=== PATIENT | female | born 1945 | race Two or more races ===

== ENCOUNTER 2025-04-28 11:51 | Inpatient (IN) | payer OTHER ==
[~2025-04-28] VITALS: Ht 154.9 cm; Wt 45.4 kg
[2025-04-28] MEDS ORDERED: INTESTINEX680 M1 PO (12:35)
[2025-04-28] MEDS ORDERED: PEPCID AC20 MG PO (12:35)
[2025-04-28] MEDS ORDERED: DULOXETINE HCL40 MG PO (12:36)
--- NOTE | 2025-04-28 12:36 | NUR ---
PACIENTE ACOMPANADA POR LA HIJA, PACIENTE REFIERE VOMITOS, DIARREAS Y DOLOR DE PATRICIA, SE LE KRISTAL LOS S/V Y SE LE UBICA PARA SER EVALUADA.
[2025-04-28] MEDS ORDERED: ONDANSETRON HCL 2 MG/ML VIAL IV STA (12:52)
[2025-04-28] MEDS ORDERED: 0.9 % SODIUM CHLORIDE 1,000 ML IV STA ×2 (12:52→18:54)
[2025-04-28] MEDS ORDERED: FAMOTIDINE/PF 20 MG/2 ML VIAL IV STA ×2 (12:52→18:53)
[2025-04-28 15:11] LABS: BASO % 0.3 % (0.1-1.2); EOS # 0.00 (0.04-0.54); EOS % 0.0 % (0.7-7.0); LYMPH # 0.31 (1.18-3.74); LYMPH % 3.4 % (19.3-53.1); MEAN PLATELET VOLUME 11.80 fl (9.4-12.4); MONO # 0.40 (0.24-0.82); MONO % 4.4 % (4.7-12.5); NEUT # 8.37 (1.56-6.13); NEUT % 91.7 % (34.0-71.1); RED CELL DISTRIBUTION WIDTH 13.4 % (11.6-14.4)
[2025-04-28 15:20] LABS: ERYTHROCYTE SEDIMENTATION RATE 30 mm/hr (0-30)
[2025-04-28 15:44] LABS: INR 1.05
[2025-04-28 15:54] LABS: ALT/SGPT 34.0 U/L (12-78); AST/SGOT 25.0 U/L (15-37); BILIRUBIN TOTAL 1.18 mg/dL (0.3-1.2); BUN CREA RATIO 16.0 (7.0-25.0); CREATININE SERUM 1.66 mg/dL (0.55-1.02); GFR 29.8; GLOBULINA 4.5 G/DL (2.4-3.5); GLUCOSE FASTING 194.0 mg/dL (65-100); OSMOLALITY SERUM 294.0 MOSM/KG (275-295)
[2025-04-28 16:25] LABS: URINE APPEARANCE Cloudy; URINE BILIRRUBIN Negative (NEGATIVE); URINE BLOOD Moderate; URINE COLOR Dark Yellow; URINE GLUCOSE Negative (NEGATIVE); URINE KETONE Trace (NEGATIVE); URINE LEUKOCYTE Small; URINE NITRATE Negative; URINE UROBILINOGEN 0.2 E.U./dl
[2025-04-28 16:29] LABS: URINE BACTERIA 417.5 uL (0.0-1933); URINE CAST 13.34 uL (0.0-1.40); URINE EPITHELIAL CELLS 99.3 uL (0.0-38.8); URINE RBC 15.6 uL (0.0-20.8); URINE WBC 69.6 uL (0.0-23.2)
[2025-04-28 17:01] LABS: URINE PROTEIN 100 (NEGATIVE)
[2025-04-28 17:02] LABS: TYPE CELLS TRANSITIONAL
[2025-04-28] MEDS ORDERED: MORPHINE SULFATE 4 MG/ML CARTRIDGE IV STA (18:53)
[2025-04-28] MEDS ORDERED: CIPROFLOXACIN IN 5 % DEXTROSE 400 MG/200 ML PIGGYBAG IV STA (18:53)
[2025-04-28] MEDS ORDERED: METRONIDAZOLE/SODIUM CHLORIDE 500 MG/100 ML PIGGYBACK IV STA (18:53)
[2025-04-28] MEDS ORDERED: FAMOTIDINE/PF 20 MG in 0.9 % SODIUM CHLORIDE 8 ML IV PUSH SCH (20:27)
[2025-04-28] MEDS ORDERED: RINGERS SOLUTION,LACTATED 1,000 ML IV SCH (20:30)
[2025-04-28] MEDS ORDERED: ACETAMINOPHEN 500 MG GEL..CAP PO PRN (20:30)
[2025-04-28] MEDS ORDERED: ONDANSETRON HCL 4 MG in 0.9 % SODIUM CHLORIDE 50 ML IV PRN (20:30)
[2025-04-28] MEDS ORDERED: MORPHINE SULFATE 2 MG/ML SYRINGE IV PRN (20:30)
[2025-04-28] MEDS ORDERED: CIPROFLOXACIN IN 5 % DEXTROSE 200 ML IV SCH (21:00)
[2025-04-29 06:58] LABS: TSH 0.673 uIU/mL (0.358-3.74)
[2025-04-29 09:00] VITALS: BP 180/77; O2SAT 99
[2025-04-29] MEDS ORDERED: ENOXAPARIN SODIUM 40 MG/0.4 ML SYRINGE SUBCUTANEO SCH (09:00)
[2025-04-29] MEDS ORDERED: ENALAPRILAT DIHYDRATE 1.25 MG/ML VIAL IV PRN (09:45)
[2025-04-29] MEDS ORDERED: NIFEDIPINE 30 MG TAB.SA.OSM PO NR (10:00)
[2025-04-29 16:59] VITALS: BP 170/72
[2025-04-29] MEDS ORDERED: hydrALAZINE HCL 20 MG VIAL IV PRN (18:45)
[2025-04-30 03:27] VITALS: BP 133/63; O2SAT 98
[2025-04-30 05:38] VITALS: O2SAT 90
[2025-04-30 08:08] LABS: BUN CREA RATIO 16.0 (7.0-25.0); CREATININE SERUM 0.91 mg/dL (0.55-1.02); GFR 59.63; GLUCOSE FASTING 119.0 mg/dL (65-100); OSMOLALITY SERUM 287.0 MOSM/KG (275-295)
[2025-04-30] MEDS ORDERED: CIPROFLOXACIN IN 5 % DEXTROSE 200 ML IV SCH (09:00)
[2025-04-30] MEDS ORDERED: NIFEDIPINE 30 MG TAB.SA.OSM PO SCH (09:00)
[2025-04-30 11:12] VITALS: BP 177/69; O2SAT 99
[2025-04-30 18:09] VITALS: BP 134/71
[2025-05-01 01:11] VITALS: BP 110/56; O2SAT 98
[2025-05-01] MEDS ORDERED: FAMOTIDINE/PF 20 MG in 0.9 % SODIUM CHLORIDE 8 ML IV PUSH SCH (09:00)
[2025-05-01 09:33] VITALS: BP 184/76; O2SAT 98
[2025-05-02] MEDS ORDERED: ENOXAPARIN SODIUM 30 MG/0.3 ML SYRINGE SUBCUTANEO SCH (09:00)
== END 2025-05-01 20:23 | disposition home or self-care (01) | DRG 392 ==
LOC: ER 11:52 → MEDI 21:40 → SEC-K 21:40 → MEDI 04-29 01:27
PROVIDERS: General Practice; Physician Assistant Medical; ADMIT Student in an Organized Health Care Education/Training Program; ATTEND Student in an Organized Health Care Education/Training Program
PROC: BW21ZZZ Computerized Tomography (CT Scan) of Abdomen and Pelvis (ICD-10-PCS; principal; 2025-04-28)
PROC: BT4JZZZ Ultrasonography of Kidneys and Bladder (ICD-10-PCS; 2025-04-28)
PROC: 4A12X4Z Monitoring of Cardiac Electrical Activity, External Approach (ICD-10-PCS; 2025-04-29)
DX: K52.9 Noninfective gastroenteritis and colitis, unspecified (principal); N17.9 Acute kidney failure, unspecified